=== PATIENT | male | born 1965 | race Caucasian/White ===

== ENCOUNTER 2018-01-23 12:10 | Day surgery (SDC) | payer OTHER ==
[~2018-01-23] VITALS: Ht 177.8 cm; Wt 72.6 kg
== END 2018-01-23 17:00 | disposition home or self-care (01) ==
LOC: ER 12:10 → SURS 15:33 → ER 15:33 → ORSCMMR 15:33 → SURS 15:36 → ER 15:36 → SURS 17:00 → ORSCMMR 17:00
PROVIDERS: Internal Medicine Gastroenterology
PROC: 0DC58ZZ Extirpation of Matter from Esophagus, Via Natural or Artificial Opening Endoscopic (ICD-10-PCS; principal; 2018-01-23 11:00)
DX: T18.108A Unspecified foreign body in esophagus causing other injury, initial encounter (principal); K22.2 Esophageal obstruction
CPT/HCPCS: 99284; J2250; J7120

== ENCOUNTER → 2020-11-01 | Outpatient (CLI) | payer OTHER ==
[2020-11-02 21:43] LABS: Stool Occult Bld Immuno 1 Negative (NEGATIVE)
== END | disposition home or self-care (01) ==
LOC: LAB SHORT 18:00
PROVIDERS: Physician Assistant
DX: Z13.1 Encounter for screening for diabetes mellitus (principal); Z12.11 Encounter for screening for malignant neoplasm of colon; Z13.6 Encounter for screening for cardiovascular disorders; E29.1 Testicular hypofunction; E78.2 Mixed hyperlipidemia; N52.9 Male erectile dysfunction, unspecified
CPT/HCPCS: G0328

== ENCOUNTER 2023-03-03 13:03 | Emergency (ER) | payer OTHER ==
[~2023-03-03] VITALS: Ht 177.8 cm; Wt 72.6 kg
[2023-03-03 14:21] VITALS: BP 170/113
[2023-03-03] MEDS ORDERED: DEPO-TESTO200 MG/18 IM (14:32)
[2023-03-03] MEDS ORDERED: CEPH500 PO (15:27)
== END 2023-03-03 15:40 | disposition home or self-care (01) ==
LOC: ER 13:03
DX: T81.41XA Infection following a procedure, superficial incisional surgical site, initial encounter (principal); T81.31XA Disruption of external operation (surgical) wound, not elsewhere classified, initial encounter; H01.9 Unspecified inflammation of eyelid; Z88.0 Allergy status to penicillin
CPT/HCPCS: 99282; A9270